=== PATIENT | male | born 1990 | race African-American/Black ===

== ENCOUNTER 2023-12-29 18:25 | Emergency (ER) | payer BC ==
[~2023-12-29] VITALS: Ht 172.7 cm; Wt 60.0 kg
[2023-12-29 18:27] VITALS: O2SAT 99
[2023-12-29] MEDS: SODIUM CHLORIDE 0.9% 1,000 ML IV ONE (19:02)
[2023-12-29] MEDS: KETOROLAC 30MG/ML VIAL IV STA (19:03)
[2023-12-29 19:38] LABS: BASOPHILS % 0.4 % (0.0-2.0); HEMATOCRIT. 44.9 % (42.0-52.0); HEMOGLOBIN. 14.8 g/dL (14.0-18.0); LYMPHOCYTES % 24.8 % (20.0-50.0); MEAN CORPUSCULAR HEMOGLOBIN 29.7 pg (28.0-32.0); MEAN CORPUSCULAR HGB CONC 32.9 g/dL (31.0-37.0); MEAN CORPUSCULAR VOLUME 90.2 fL (80.0-94.0); MEAN PLATELET VOLUME 9.5 fl (7.4-10.4); MONOCYTES % 6.4 % (2.0-8.0); NEUTROPHILS % 65.4 % (40.0-76.0); PLATELET 195 x1000/uL (130-400); RED BLOOD CELL COUNT 4.98 mill/uL (4.7-6.1); RED CELL DISTRIBUTION WIDTH 13.8 % (11.6-14.6); WHITE BLOOD COUNT 5.8 x1000/uL (4.5-11.0)
[2023-12-29 19:43] LABS: CHLORIDE 105 mEq/L (98-107); POTASSIUM 4.2 mEq/L (3.5-5.1); SODIUM 139 mEq/L (136-145)
[2023-12-29 19:44] LABS: CARBON DIOXIDE 29 mEq/L (21-32)
[2023-12-29 19:45] LABS: CALCIUM 9.3 mg/dL (8.7-10.4)
[2023-12-29 19:49] LABS: CREATININE 1.1 mg/dL (0.6-1.3); GLUCOSE 87 mg/dL (70-105); UREA NITROGEN BLOOD 12 mg/dL (9-23)
[2023-12-29 19:50] LABS: TROPONIN I HIGH SENSITIVITY 4 ng/L (3.0-53)
[2023-12-29 19:51] LABS: ALANINE AMINOTRANSFERASE 15 IU/L (10-49); ALBUMIN 4.6 g/dL (3.2-4.8); ASPARTATE AMINOTRANSFERASE 27 IU/L (<34)
[2023-12-29 19:52] LABS: BILIRUBIN TOTAL 0.4 mg/dL (0.1-1.0); PROTEIN TOTAL 6.9 g/dL (6.0-8.3)
[2023-12-29] MEDS: NITROGLYCERIN 0.4MG TABLET SL SL PRN (20:47)
[2023-12-29] MEDS ORDERED: IBUP-2028 MT (21:32)
[2023-12-29 21:49] LABS: TROPONIN I HIGH SENSITIVITY 4 ng/L (3.0-53)
[2023-12-29 23:14] VITALS: BP 112/79; PULSE 63; RESP 13; TEMP 98.5
== END 2023-12-29 23:14 | disposition home or self-care (01) ==
LOC: ER 18:25
DX: R07.89 Other chest pain (principal)
CPT/HCPCS: 80053; 83880; 85025; 84484; 36415; 71045; 93005; 96360; 96361; 99285; J1885; J7030; Z7610